=== PATIENT | male | born 1995 | race Caucasian/White ===

== ENCOUNTER 2018-04-09 05:31 | Day surgery (SDC) | payer SELFPAY ==
[2018-04-09] MEDS ORDERED: cefOXitin 2 GM in Premix Bag 1 BAG IV ONE (05:46)
[2018-04-09] MEDS ORDERED: HYDROmorphone 0.5 MG/0.5 ML SYRINGE IVPUSH PRN (05:48)
[2018-04-09] MEDS ORDERED: Sodium Chloride 0.9% 1,000 ML IV SCH (06:00)
[2018-04-09] MEDS ORDERED: Lidocaine 1% with EPINEPHrine 1:100,000 20 ML MDV ONE (08:23)
[2018-04-09] MEDS ORDERED: Bupivacaine 0.5%/EPINEPHrine 1:200,000 50 ML MDV ONE (08:23)
[2018-04-09] MEDS ORDERED: Ondansetron 4 MG/2 ML SDV ONE (08:27)
[2018-04-09] MEDS ORDERED: fentaNYL 250 MCG/5 ML SDV ONE (08:27)
[2018-04-09] MEDS ORDERED: Rocuronium 50 MG/5 ML Vial ONE (08:27)
[2018-04-09] MEDS ORDERED: Propofol 200 MG/20 ML SDV ONE (08:27)
[2018-04-09] MEDS ORDERED: Lidocaine 1% 4 ML ONE (08:28)
[2018-04-09] MEDS ORDERED: Midazolam 1 MG/ML 2 ML SDV ONE (08:34)
--- NOTE | 2018-04-09 08:35 | PCM.HP ---
H&P History of Present Illness - General Date of Service: 04/09/18 Admit Problem/Dx: Acute appendicitis Source of Information: Patient - History of Present Illness Initial Comments - Free Text/Narative: 23-year-old white male was in his usual state of excellent health until after dinner yesterday when at 9 PM he began to experience abdominal cramping discomfort associated with emesis and shaking chills. Over the next couple hours the discomfort migrated to the right lower quadrant which he characterized as pain. Because of the chills and the pain he presented to the emergency room. He had a leukocytosis of about 18,[address] scan which had imaging features consistent with acute appendicitis. He was driven by his from [facility] here after I accepted him for appendectomy. - Related Data Allergies/Adverse Reactions: Allergies Allergy/AdvReac Type Severity Reaction Status Date / Time No Known Allergies Allergy Verified 04/09/18 05:46 Home Medications: Home Meds . [No Known Home Meds] 04/09/18 [History] Past Medical History - Past Surgical History HEENT Surgical History: Reports: Adenoidectomy, Tonsillectomy Social & Family History - Family History Family Medical History: Noncontributory - Tobacco Use Smoking Status *Q: Current Every Day Smoker Years of Tobacco use: 3 Packs/Tins Daily: 1.5 - Caffeine Use Caffeine Use: Reports: Coffee, Tea - Recreational Drug Use Recreational Drug Use: Yes Recreational Drug Type: Reports: Marijuana/Hashish H&P Review of Systems - Review of Systems: Review Of Systems: ROS reveals no pertinent complaints other than HPI. Exam - Exam Exam: See Below - Vital Signs Vital Signs: Last Vital Signs Temp 37.1 C 04/09/18 05:42 Pulse 70 04/09/18 05:42 Resp 16 04/09/18 05:42 BP 118/58 L 04/09/18 05:42 Pulse Ox 100 04/09/18 05:42 Weight: 75.296 kg - Exam General: Alert, Oriented, Cooperative HEENT: Conjunctiva Clear, EOMI, Hearing Intact Neck: Supple, Trachea Midline Lungs: Clear to Auscultation, Normal Respiratory Effort Cardiovascular: Regular Rate, Regular Rhythm, Normal S1, Normal S2 GI/Abdominal Exam: Normal Bowel Sounds, Soft, Other (Right lower quadrant abdominal discomfort) (Male) Exam: Deferred Rectal (Males) Exam: Deferred Back Exam: Normal Inspection Extremities: Normal Inspection Skin: Warm, Dry, Intact Neuro Extensive - Mental Status: Alert, Oriented x3, Normal Mood/Affect Psychiatric: Alert, Normal Affect - Problem List (1) Acute appendicitis SNOMED Code(s): 79912260 ICD Code: K35.80 - UNSPECIFIED ACUTE APPENDICITIS Status: Acute Current Visit: Yes Onset Date: ~04/08/18 Qualifiers: Acute appendicitis type: unspecified acute appendicitis type Qualified Code (s): K35.80 - Unspecified acute appendicitis Problem List Initiated/Reviewed/Updated: Yes Orders Last 24hrs: Active Orders 24 hr Category Date Time Status HYDROmorphone [Dilaudid] Med 04/09/18 05:48 Active 1 mg IVPUSH Q1H PRN Sodium Chloride 0.9% [Normal Saline] 1,000 ml Med 04/09/18 06:00 Active IV ASDIRECTED Schedule Procedure [COMM] Routine Oth 04/09/18 09:00 Ordered Medication Orders Hydromorphone HCl (Dilaudid) 1 mg IVPUSH Q1H PRN PRN Reason: Pain Last Admin: 04/09/18 06:16 Dose: 1 mg Sodium Chloride (Normal Saline) 1,000 mls @ 125 mls/hr IV ASDIRECTED ADITI Last Admin: 04/09/18 06:04 Dose: 125 mls/hr Assessment/Plan Comment:: I've recommended laparoscopic appendectomy to which the patient and his have agreed to have performed after hearing the benefits risks and alternatives from me.
[2018-04-09] MEDS ORDERED: Lactated Ringers 1,000 ML ONE (09:08)
--- NOTE | 2018-04-09 10:00 | PCM.OPNOTE ---
- General Post-Op/Procedure Note Date of Surgery/Procedure: 04/09/18 Operative Procedure(s): Laparoscopic appendectomy Findings: Acute appendicitis Pre Op Diagnosis: Acute appendicitis Post-Op Diagnosis: Same Anesthesia Technique: General ET Tube, Local Primary Surgeon: Dawood Rueda Pathology: Appendix EBL in mLs: 10 Complications: None Condition: Good Free Text/Narrative:: After adequate general endotracheal tube anesthesia was obtained the patient's abdomen was prepped then draped in the usual fashion for a laparoscopic possible open appendectomy. A supraumbilical incision was made with a 15 blade after local analgesia was given. The abdomen was entered followed by insertion of a 12 mm camera port through which CO2 pneumoperitoneum was obtained. 5 mm working ports were placed in the left lower quadrant and the suprapubic region. The appendix was immediately identified from exploration and I grasped its tip. A window was made in the appendiceal mesentery. I fired the stapling device across the appendiceal base and in the mesentery. The stapler did not control the appendiceal artery and I had to place 3 clips in the area to complete hemostasis. I then irrigated out the right lower quadrant and pelvis with saline. I then decannulated the abdomen under direct vision and there was no bleeding from the port sites. The supra umbilical site was closed with a figure- of-eight 0 Vicryl. Subcutaneous tissues and skin were closed Vicryl as well. Photographs were taken for the patient and for the medical record. There were no complications.
[2018-04-09] MEDS ORDERED: fentaNYL 250 MCG/5 ML SDV IVPUSH PRN (10:03)
[2018-04-09] MEDS ORDERED: HYDROmorphone 0.5 MG/0.5 ML Syringe IVPUSH PRN ×2 (10:03→10:45)
--- NOTE | 2018-04-09 10:05 | PCM.POSTAN ---
POST ANESTHESIA ASSESSMENT - MENTAL STATUS Mental Status: Somnolent - VITAL SIGNS Pulse Rate: 103 SaO2: 100 Resp Rate: 10 Blood Pressure: 140/68 Temperature: 36.7 C - RESPIRATORY Respiratory Status: Respiratory Rate WNL, Airway Patent, O2 Saturation Stable, Supplemental Oxygen - CARDIOVASCULAR CV Status: Pulse Rate WNL, Blood Pressure Stable - GASTROINTESTINAL GI Status: No Symptoms - PAIN Pain Score: 0 - POST OP HYDRATION Hydration Status: Adequate & Stable - OBSERVATIONS Free Text/Narrative:: no anesthesia complications noted
--- NOTE | 2018-04-09 10:06 | PCM.PREANE ---
Preanesthetic Assessment - Anesthesia/Transfusion/Family Hx Anesthesia History: Prior Anesthesia Without Reaction Family History of Anesthesia Reaction: No Transfusion History: No Prior Transfusion(s) - Review of Systems General: No Symptoms Pulmonary: No Symptoms Cardiovascular: No Symptoms Gastrointestinal: No Symptoms Neurological: No Symptoms Other: Reports: None - Physical Assessment NPO Status Date: 04/08/18 NPO Status Time: 21:00 Pulse: 103 O2 Sat by Pulse Oximetry: 100 Respiratory Rate: 10 Blood Pressure: 140/68 Temperature: 36.7 C Vital Signs: Last Vital Signs Temp 36.7 C 04/09/18 10:05 Pulse 103 H 04/09/18 10:05 Resp 10 L 04/09/18 10:05 BP 140/68 04/09/18 10:05 Pulse Ox 100 04/09/18 10:05 Height: 1.88 m Weight: 75.296 kg ASA Class: 2E Mental Status: Alert & Oriented x3 Airway Class: Mallampati = 1 Dentition: Reports: Normal Dentition Thyro-Mental Finger Breadths: 3 Mouth Opening Finger Breadths: 3 ROM/Head Extension: Full Lungs: Clear to Auscultation, Normal Respiratory Effort Cardiovascular: Regular Rate, Regular Rhythm, No Murmurs - Allergies Allergies/Adverse Reactions: Allergies Allergy/AdvReac Type Severity Reaction Status Date / Time No Known Allergies Allergy Verified 04/09/18 05:46 - Blood Blood Available: No Product(s) Available: None - Anesthesia Plan Pre-Op Medication Ordered: None - Acknowledgements Anesthesia Type Planned: General Anesthesia Pt an Appropriate Candidate for the Planned Anesthesia: Yes Alternatives and Risks of Anesthesia Discussed w Pt/Guardian: Yes Pt/Guardian Understands and Agrees with Anesthesia Plan: Yes PreAnesthesia Questionnaire Respiratory History: Reports: Asthma (sports induced) Gastrointestinal History: Reports: GERD - Past Surgical History HEENT Surgical History: Reports: Adenoidectomy, Tonsillectomy - SUBSTANCE USE Smoking Status *Q: Current Every Day Smoker Tobacco Use Within Last Twelve Months: Cigarettes Second Hand Smoke Exposure: No Recreational Drug Use History: Yes Recreational Drug Type: Reports: Marijuana/Hashish - HOME MEDS Home Medications: Home Meds . [No Known Home Meds] 04/09/18 [History] - CURRENT (IN HOUSE) MEDS Current Meds: Current Medications Fentanyl (Sublimaze) 50 mcg IVPUSH Q5M PRN PRN Reason: PAIN Hydromorphone HCl (Dilaudid) 1 mg IVPUSH Q1H PRN PRN Reason: Pain Last Admin: 04/09/18 06:16 Dose: 1 mg Hydromorphone HCl (Dilaudid) 0.5 mg IVPUSH ONETIME PRN PRN Reason: Pain Sodium Chloride (Normal Saline) 1,000 mls @ 125 mls/hr IV ASDIRECTED [facility] Last Admin: 04/09/18 06:04 Dose: 125 mls/hr Discontinued Medications Bupivacaine HCl/Epinephrine Bitart (Marcaine 0.5%/Epinephrine 1:200,000) Confirm Administered Dose 50 ml .ROUTE .STK-MED ONE Stop: 04/09/18 08:24 Fentanyl (Sublimaze) Confirm Administered Dose 250 mcg .ROUTE .STK-MED ONE Stop: 04/09/18 08:28 Cefoxitin Sodium 2 gm/ Premix 50 mls @ 100 mls/hr IV ONETIME ONE Stop: 04/09/18 06:15 Last Admin: 04/09/18 06:04 Dose: 100 mls/hr Lidocaine HCl (Xylocaine-Mpf 1%) Confirm Administered Dose 4 mls @ as directed .ROUTE .STK-MED ONE Stop: 04/09/18 08:29 Lactated Ringer's (Ringers, Lactated) Confirm Administered Dose 1,000 mls @ as directed .ROUTE .STK-MED ONE Stop: 04/09/18 09:09 Lidocaine/Epinephrine (Xylocaine 1% With Epinephrine 1:100,000) Confirm Administered Dose 20 ml .ROUTE .STK-MED ONE Stop: 04/09/18 08:24 Midazolam HCl (Versed 1 Mg/Ml) Confirm Administered Dose 2 mg .ROUTE .STK-MED ONE Stop: 04/09/18 08:35 Ondansetron HCl (Zofran) Confirm Administered Dose 4 mg .ROUTE .STK-MED ONE Stop: 04/09/18 08:28 Propofol (Diprivan 20 Ml) Confirm Administered Dose 200 mg .ROUTE .STK-MED ONE Stop: 04/09/18 08:28 Rocuronium [place] (Zemuron) Confirm Administered Dose 50 mg .ROUTE .STK-MED ONE Stop: 04/09/18 08:28
[2018-04-09] MEDS ORDERED: fentaNYL 100 MCG/2 ML SDV IVPUSH PRN (10:45)
[2018-04-09] MEDS ORDERED: Acetaminophen/Codeine 300-30 MG Tab PO PRN (10:57)
--- NOTE | 2018-04-09 11:38 | PCM48HPAN ---
Post Anesthesia Note - EVALUATION WITHIN 48HRS OF ANESTHETIC Vital Signs in Normal Range: Yes Patient Participated in Evaluation: Yes Respiratory Function Stable: Yes Airway Patent: Yes Cardiovascular Function Stable: Yes Hydration Status Stable: Yes Pain Control Satisfactory: Yes Nausea and Vomiting Control Satisfactory: Yes Mental Status Recovered: Yes Pulse Rate: 103 Resp Rate: 14 Temperature: 36.7 C Blood Pressure: 140/68 - COMMENTS/OBSERVATIONS Free Text/Narrative:: no anesthesia complications noted
== END 2018-04-09 12:10 | disposition home or self-care (01) ==
LOC: JD.ED 05:31 → JD.SDS 08:41
PROVIDERS: ATTEND Surgery
DX: K35.3 Acute appendicitis with localized peritonitis (principal); J45.909 Unspecified asthma, uncomplicated; K21.9 Gastro-esophageal reflux disease without esophagitis; F17.210 Nicotine dependence, cigarettes, uncomplicated; Z79.899 Other long term (current) drug therapy
CPT/HCPCS: 44970; 96361; 96365; 96375; 99285; A9270; J0694; J1170; J2001; J2250; J2405; J3010; J7040; J7120; J2704